=== PATIENT | male | born 1960 | race African-American/Black ===

== ENCOUNTER → 2020-12-14 | Outpatient (CLI) | payer OTHER | LOC: RAD 13:11 | PROVIDERS: ATTEND Emergency Medicine | DX: R06.02 Shortness of breath (principal); J44.9 Chronic obstructive pulmonary disease, unspecified | CPT/HCPCS: 71046 ==

== ENCOUNTER → 2021-09-19 | Outpatient (CLI) | payer OTHER | LOC: US 07:18 | PROVIDERS: ATTEND Emergency Medicine | DX: R74.8 Abnormal levels of other serum enzymes (principal) | CPT/HCPCS: 76705 ==